=== PATIENT | male | born 1965 | race Caucasian/White ===

== ENCOUNTER 2019-05-18 22:22 | Emergency (ER) | payer BC, OTHER ==
[~2019-05-18] VITALS: Ht 175.2 cm; Wt 91.9 kg
--- NOTE | 2019-05-18 23:10 | ED General ---
General Chief Complaint: Glucose Problems Stated Complaint: HIGH BLOOD SUGAR Nursing Triage Note: Patient states that he checked his blood sugar approximately 2 hours ago and it was 506. He gave himself 20 units of Levemir and he normally takes 10 units. States he normally runs between 150-200. Nursing Sepsis Screen: No Definite Risk Source of Information: Patient, Family History of Present Illness Date Seen by Provider: May 18, 2019 Time Seen by Provider: 23:10 Initial Comments 54 yo M presenting with complaints of elevated blood sugars. He has been out of his glipizide. He measured his sugar earlier this evening it was 506 at home so he took 20 units of Levemir instead of his normal 10 units. He does have the thousand milligrams of metformin that he takes twice a day and is continuing to take that. However he was out of his glipizide 10 mg twice a day. He has noticed that he's been having increased thirst and urination over the last several days. He was supposed to follow-up with Dr. Clement this month for his routine follow-up but because of her changing clinics he has not been seen and has not arranged follow up with any new provider. He denies any nausea or vomiting. He has no dizziness or change in his vision. He denies any chest pain or shortness of breath. Tonight he did eat Japanese food and had a lot of extra carbohydrates. Allergies and Home Medications Allergies Coded Allergies: No Known Drug Allergies (Unverified , 05/18/19) Home Medications Glipizide 10 Mg Tablet, 10 MG PO BID WITH MEALS Prescribed by: JONNY SOSA on 05/18/19 5042 Insulin Detemir 100 Unit/1 Ml Insuln.pen, 10 UNITS SC HS, (Reported) Metformin HCl 1,000 Mg Tablet, 1,000 MG PO BID, (Reported) Patient Home Medication List Home Medication List Reviewed: Yes Review of Systems Review of Systems Constitutional: No chills, No dizziness, No fever; other (increase thirst and urination) EENTM: no symptoms reported Respiratory: no symptoms reported Cardiovascular: no symptoms reported Gastrointestinal: no symptoms reported Genitourinary: no symptoms reported Musculoskeletal: no symptoms reported Skin: no symptoms reported Psychiatric/Neurological: No Symptoms Reported Hematologic/Lymphatic: No Symptoms Reported Immunological/Allergic: no symptoms reported Past Civbdls-Mljnym-Ypyaia Hx Past Med/Social Hx: Reviewed Nursing Past Med/Soc Hx Patient Social History Alcohol Use: Denies Use Recreational Drug Use: Yes Smoking Status: Current Everyday Smoker Type Used: Cigarettes Recent Foreign Travel: No Contact w/Someone Who Travel: No Recent Infectious Disease Expo: No Physical Abuse: No Sexual Abuse: No Mistreated: No Fear: No Seasonal Allergies Seasonal Allergies: No Past Medical History Surgeries: Yes Orthopedic Respiratory: No Cardiac: No Neurological: No Genitourinary: No Gastrointestinal: No Musculoskeletal: No Endocrine: Yes Diabetes, Insulin dep HEENT: No Cancer: No Psychosocial: No Integumentary: No Physical Exam Vital Signs Vital Signs - First Documented 05/18/19 22:37 Temp 37.1 Pulse 93 Resp 18 B/P (MAP) 146/89 (108) Pulse Ox 94 O2 Delivery Room Air Capillary Refill : Less Than 3 Seconds Height, Weight, BMI Height: '" Weight: lbs. oz. kg; 29.00 BMI Method: General Appearance: No Apparent Distress, WD/WN HEENT: PERRL/EOMI, Normal ENT Inspection, Pharynx Normal Neck: Full Range of Motion, Normal Inspection, Non Tender, Supple Respiratory: Chest Non Tender, Lungs Clear, Normal Breath Sounds Cardiovascular: Regular Rate, Rhythm, Normal Peripheral Pulses Gastrointestinal: Normal Bowel Sounds, No Pulsatile Mass, Non Tender, Soft Extremity: Normal Capillary Refill, No Pedal Edema Neurologic/Psychiatric: Alert, Oriented x3, No Motor/Sensory Deficits Skin: Normal Color, Warm/Dry Progress/Results/Core Measures Suspected Sepsis Recent Fever Within 48 Hours: No Infection Criteria Present: None New/Unexplained Altered Menta: No Sepsis Screen: No Definite Risk SIRS Temperature: Pulse: 93 Respiratory Rate: 18 Blood Pressure 146 /89 Mean: 108 Results/Orders Lab Results Laboratory Tests Test 05/18/19 22:47 Range/Units Glucometer 388 H 70-110 MG/DL My Orders Orders - JONNY SOSA MD Accucheck Stat ONCE (05/18/19 22:56) Vital Signs/I&O 05/18/19 05/18/19 22:37 23:53 Temp 37.1 37.1 Pulse 93 93 Resp 18 18 B/P (MAP) 146/89 (108) 146/89 (108) Pulse Ox 94 94 O2 Delivery Room Air Capillary Refill : Less Than 3 Seconds Blood Pressure Mean: 108 Point of Care Testing Finger Stick Blood Glucose: 388 Progress Note : Progress Note Accu-Chek here was 388 for his sugar. This was approximately 2 hours after his Levemir he had taken at home. The Levemir onset of action is 2 hours after injection. The peak for the Levemir is 3-9 hours after injection and is to last for 24 hours. he should do fine with the 20 units and I do not want to cause him to become hypoglycemic so will defer any additional meds for now. Will refill his glipizide for now. Have him get established with a provider to take Dr. Clement's place. Departure Impression Primary Impression: Uncontrolled diabetes mellitus with hyperglycemia, with long-term current use of insulin Disposition: HOME, SELF-CARE Condition: Stable Departure-Patient Inst. Decision time for Depature: 23:43 Referrals: ELIESER CLEMENT MD (PCP/Family) Primary Care Physician [facility] [place] Patient Instructions: Diabetes Diet , Diabetes and Diet, Hyperglycemia, Adult (DC) Add. Discharge Instructions: Take your diabetes pills and the levemir insulin as prescribed by Dr. Clement. Get in to the clinic and follow up about your diabetes with a new provider to take Dr. Clement's place since she is no longer in the clinic to manage your care All discharge instructions reviewed with patient and/or family. Voiced understanding. Scripts Glipizide (Glipizide) 10 Mg Tablet 10 MG PO BID WITH MEALS for 30 Days, #60 TAB 0 Refills Prov: JONNY SOSA MD 05/18/19 JONNY SOSA MD May 18, 2019 23:10
[2019-05-18] MEDS ORDERED: METF-399 PO (23:38)
[2019-05-18] MEDS ORDERED: GLIP10TA13 PO ×2 (23:38→23:47)
[2019-05-18] MEDS ORDERED: INSU100I29 SC (23:38)
[2019-05-18 23:53] VITALS: BP 146/89
== END 2019-05-18 23:53 | disposition home or self-care (01) ==
LOC: ER FS 22:24
DX: E11.65 Type 2 diabetes mellitus with hyperglycemia (principal); F17.210 Nicotine dependence, cigarettes, uncomplicated; Z79.4 Long term (current) use of insulin
CPT/HCPCS: 82962

== ENCOUNTER → 2020-02-26 | Outpatient (CLI) | payer BC ==
[~2020-02-26] MED LIST: GLIP10TA13 PO; INSU100I29 SC; METF-399 PO
--- NOTE | 2020-02-26 13:12 | Diagnostic Imaging Report ---
INDICATION: Back injury three days ago. Time of exam 11:35 a.m. Frontal and lateral views of the lumbar spine were obtained. Curvature and alignment is normal. Vertebral body heights and disc spaces are well-maintained. No fracture is detected. Minimal degenerative lipping is noted. IMPRESSION: No acute bony abnormality is detected. Dictated by: Dictated on workstation # [id number]
== END ==
LOC: RAD FS 11:27
PROVIDERS: ATTEND Nurse Practitioner Family
DX: S39.92XA Unspecified injury of lower back, initial encounter (principal); X58.XXXA Exposure to other specified factors, initial encounter
CPT/HCPCS: 72100